=== PATIENT | male | born 1980 | race Caucasian/White ===

== ENCOUNTER → 2022-02-27 12:41 | Outpatient (CLI) | payer OTHER ==
[~2022-02-27 12:41] MED LIST: BUDEO.25 IH; KETO10TA2 PO; LORATADINE10 MG PO; ORPH100T PO; PREVACID30 MG PO; PROVENTIL0.5 ML/2.5 IH; ZANTAC300 MG PO
== END | disposition home or self-care (01) ==
LOC: LAB 12:41
PROVIDERS: ATTEND Obstetrics & Gynecology
DX: Z20.828 Contact with and (suspected) exposure to other viral communicable diseases (principal)

== ENCOUNTER 2023-08-25 12:56 | Emergency (ER) | payer OTHER ==
[~2023-08-25] VITALS: Ht 188 cm; Wt 91.2 kg
[2023-08-25] MEDS ORDERED: NORFLEX100MG PO (17:31)
[2023-08-25] MEDS ORDERED: DICLOFENAC SODI75 MG PO (17:31)
== END 2023-08-25 18:17 | disposition home or self-care (01) ==
LOC: ER 12:57
DX: M54.50 Low back pain, unspecified (principal); Z88.8 Allergy status to other drugs, medicaments and biological substances

== ENCOUNTER 2024-04-25 09:59 | Emergency (ER) | payer OTHER ==
[~2024-04-25] VITALS: Ht 188 cm; Wt 92.5 kg
[~2024-04-25 09:59] MED LIST changes: +ALBUTEROL2.5 MG/3 M IH; +COUGH & CHEST177 ML PO; +DICLOFENAC SODI75 MG PO; +NORFLEX100MG PO; +PROVENTIL HFA6.7 GM IH
[2024-04-25] MEDS ORDERED: BENZONATATE 100 MG CAPSULE PO ONE (10:45)
[2024-04-25] MEDS ORDERED: IPRATROPIUM/ALBUTEROL SULFATE 3 ML AMPUL.NEB IH ONE ×2 (10:45→11:43)
[2024-04-25] MEDS ORDERED: METHYLPREDNISOLONE SOD SUCC 40 MG VIAL IM ONE (10:45)
[2024-04-25] MEDS ORDERED: MONTELUKAST SODIUM 10 MG TABLET PO ONE (10:45)
[2024-04-25] MEDS ORDERED: LEVALBUTEROL HCL 0.63 MG/3 ML SOLUTION IH ONE ×2 (10:45→11:40)
[2024-04-25] MEDS ORDERED: METHYLPREDNISOLONE SOD SUCC 40 MG VIAL ONE (10:50)
[2024-04-25 11:23] LABS: HEMATOCRIT 44.4 % (39.0-48.0); HEMOGLOBIN 14.9 g/dL (13-16.00); MEAN CORPUSCULAR HEMOGLOBIN 26.9 pg (27.00-32.0); MEAN CORPUSCULAR HGB CONC 33.6 g/dl (32.0-36.0); PLATELET COUNT 386 K/uL (150-450); RED BLOOD COUNT 5.55 M/uL (4.00-6.00); RED CELL DISTRIBUTION WIDTH 13.9 % (11.5-14.5)
[2024-04-25 11:36] LABS: ABG PH 7.394 (7.35-7.45); ABG pCO2 44.2 mmHg (35-45); BASE EXCESS 1.1 mmol/l; BICARBONATE 26.4 mmol/l (23-25); SaO2 94.8 %; Tco2 27.8 mmol/l
[2024-04-25 17:36] LABS: allen test SATISFACTORY; o2 21 %; puncture site RADIAL RIGHT
== END 2024-04-25 13:53 | disposition home or self-care (01) ==
LOC: ER 10:00
PROVIDERS: General Practice
DX: J45.901 Unspecified asthma with (acute) exacerbation (principal); Z91.013 Allergy to seafood; Z88.8 Allergy status to other drugs, medicaments and biological substances; I25.10 Atherosclerotic heart disease of native coronary artery without angina pectoris; Z20.822 Contact with and (suspected) exposure to COVID-19
CPT/HCPCS: 36415; 71045; 82803; 94640; 99284; J3490

== ENCOUNTER 2024-08-09 10:26 | Emergency (ER) | payer OTHER ==
[~2024-08-09] VITALS: Ht 188 cm; Wt 95.3 kg
[2024-08-09] MEDS ORDERED: IPRATROPIUM BROMIDE 0.5 MG/2.5 ML AMPUL.NEB IH ONE (12:15)
[2024-08-09] MEDS ORDERED: ALBUTEROL SULFATE 3 ML/2.5 MG AMPUL.NEB IH ONE (12:15)
[2024-08-09] MEDS ORDERED: METHYLPREDNISOLONE SOD SUCC 125 MG VIAL IV ONE (12:15)
[2024-08-09 12:53] LABS: HEMATOCRIT 48.1 % (39.0-48.0); HEMOGLOBIN 15.7 g/dL (13-16.00); MEAN CELL VOLUME 82.4 fL (80.0-100.00); MEAN CORPUSCULAR HEMOGLOBIN 26.9 pg (27.00-32.0); MEAN CORPUSCULAR HGB CONC 32.6 g/dl (32.0-36.0); PLATELET COUNT 303 K/uL (150-450); RED BLOOD COUNT 5.84 M/uL (4.00-6.00); RED CELL DISTRIBUTION WIDTH 13.5 % (11.5-14.5)
[2024-08-09] MEDS ORDERED: MONTELUKAST SOD10 MG PO (13:40)
[2024-08-09] MEDS ORDERED: ZITHROMAX200 MG PO (13:41)
== END 2024-08-09 14:13 | disposition home or self-care (01) ==
LOC: ER 10:28
PROVIDERS: General Practice
DX: R53.81 Other malaise (principal); J06.9 Acute upper respiratory infection, unspecified; Z20.822 Contact with and (suspected) exposure to COVID-19; Z88.6 Allergy status to analgesic agent

== ENCOUNTER 2025-02-08 16:00 | Inpatient (IN) | payer OTHER ==
[~2025-02-08] VITALS: Ht 188 cm; Wt 99.8 kg
[~2025-02-08 16:00] MED LIST changes: +MONTELUKAST SOD10 MG PO; +ZITHROMAX200 MG PO
[2025-02-08] MEDS ORDERED: ONDANSETRON HCL 2 MG/ML VIAL IV STA (17:12)
[2025-02-08] MEDS ORDERED: 0.9 % SODIUM CHLORIDE 1,000 ML IV STA (17:13)
[2025-02-08] MEDS ORDERED: DILTIAZEM HCL 25 MG/5 ML VIAL IV STA (17:19)
[2025-02-08] MEDS ORDERED: DILTIAZEM HCL 25 MG/5 ML VIAL IV ONE (17:30)
[2025-02-08] MEDS ORDERED: ONDANSETRON HCL 2 MG/ML VIAL ONE (17:30)
[2025-02-08 18:02] LABS: BASO % 0.3 % (0.1-1.2); EOS # 0.19 (0.04-0.54); EOS % 1.9 % (0.7-7.0); HEMATOCRIT 48.8 % (40.1-51.0); LYMPH # 0.82 (1.18-3.74); LYMPH % 8.2 % (19.3-53.1); MEAN CORPUSCULAR HEMOGLOBIN 26.4 pg (25.6-32.2); MONO # 0.83 (0.24-0.82); MONO % 8.3 % (4.7-12.5); NEUT # 8.05 (1.56-6.13); NEUT % 80.9 % (34.0-71.1); PLATELET COUNT 339 K/uL (163-369); RED BLOOD COUNT 6.05 M/uL (4.63-6.08); RED CELL DISTRIBUTION WIDTH 12.6 % (11.6-14.4)
[2025-02-08 18:14] LABS: INR 1.02; PARTIAL THROMBOPLASTIN TIME 30.8 SECONDS (22.0-34.0); PROTHROMBIN TIME 11.1 SECONDS (9.0-11.5)
[2025-02-08 18:30] LABS: ALBUMIN 4.3 gm/dL (3.4-5.0); BILIRUBIN TOTAL 0.62 mg/dL (0.3-1.2); CREATININE SERUM 1.04 mg/dL (0.70-1.30); GFR 78.32; GLOBULINA 3.9 G/DL (2.4-3.5); POTASSIUM 4.14 mEq/L (3.5-5.1); TOTAL PROTEIN 8.2 gm/dL (6.4-8.2)
[2025-02-08] MEDS ORDERED: 0.9 % SODIUM CHLORIDE 1,000 ML IV SCH (19:45)
[2025-02-08] MEDS ORDERED: ENOXAPARIN SODIUM 40 MG/0.4 ML SYRINGE SUBCUTANEO SCH (19:47)
[2025-02-08] MEDS ORDERED: IPRATROPIUM BROMIDE 0.5 MG/2.5 ML AMPUL.NEB IH SCH (19:48)
[2025-02-08] MEDS ORDERED: ACETAMINOPHEN 500 MG GEL..CAP PO PRN (20:00)
[2025-02-08] MEDS ORDERED: PANTOPRAZOLE SODIUM 40 MG/VIAL VIAL IV ONE (20:00)
[2025-02-08] MEDS ORDERED: ONDANSETRON HCL 4 MG in 0.9 % SODIUM CHLORIDE 50 ML IV PRN (20:00)
[2025-02-08 20:37] VITALS: BP 129/73; O2SAT 96
[2025-02-09] VITALS: BP 106/57; O2SAT 99
[2025-02-09 05:30] VITALS: BP 138/82; O2SAT 100
[2025-02-09 07:12] LABS: CHOL HDL RATIO 4.2 (0-5.0); TSH 0.379 uIU/mL (0.358-3.74)
[2025-02-09] MEDS ORDERED: BUDESONIDE 0.5 MG/2 ML AMPUL.NEB IH SCH (09:00)
[2025-02-09] MEDS ORDERED: DILTIAZEM HCL 30 MG TABLET PO SCH (09:00)
[2025-02-09] MEDS ORDERED: PANTOPRAZOLE SODIUM 40 MG TABLET.DR PO SCH (09:00)
[2025-02-09] MEDS ORDERED: DILTIAZEM HCL 120 MG CAP.SR.24H PO SCH (09:00)
[2025-02-09 09:18] LABS: CALCIUM 8.6 mg/dL (8.5-10.1); CREATININE SERUM 1.1 mg/dL (0.70-1.30); GFR 73.41; POTASSIUM 3.79 mEq/L (3.5-5.1)
[2025-02-09 11:53] LABS: ABG PH 7.387 (7.35-7.45); ABG PO2 82.8 mmHg (80-100); BASE EXCESS -2.3 mmol/l; BICARBONATE 22.3 mmol/l (23-25); SaO2 95.8 %; Tco2 23.5 mmol/l
[2025-02-09 12:00] VITALS: BP 117/71; O2SAT 98
[2025-02-09 15:23] VITALS: BP 95/60; O2SAT 100
[2025-02-09 15:58] LABS: allen test SATISFACTORY; o2 21 %; puncture site RADIAL RIGHT
[2025-02-09 15:59] LABS: mode ROOM AIR
[2025-02-09] MEDS ORDERED: MONTELUKAST SODIUM 10 MG TABLET PO SCH (17:00)
[2025-02-09] MEDS ORDERED: MONTELUKAST SODIUM 10 MG TABLET PO ONE (17:12)
[2025-02-09] MEDS ORDERED: DILTIAZEM HCL 30 MG TABLET PO ONE (17:12)
[2025-02-09 17:31] VITALS: BP 138/80; BP 150/80; O2SAT 95
[2025-02-09 21:20] VITALS: O2SAT 97
[2025-02-10 00:37] VITALS: BP 103/68; O2SAT 97
[2025-02-10 01:36] VITALS: O2SAT 98
[2025-02-10 06:05] VITALS: O2SAT 97
[2025-02-10 06:33] LABS: BASO % 0.3 % (0.1-1.2); EOS # 0.23 (0.04-0.54); EOS % 3.1 % (0.7-7.0); HEMATOCRIT 44.7 % (40.1-51.0); HEMOGLOBIN 14.7 g/dL (13.7-17.5); LYMPH # 1.15 (1.18-3.74); LYMPH % 15.5 % (19.3-53.1); MEAN CORPUSCULAR HEMOGLOBIN 26.8 pg (25.6-32.2); MONO # 0.98 (0.24-0.82); NEUT # 5.01 (1.56-6.13); NEUT % 67.5 % (34.0-71.1); PLATELET COUNT 258 K/uL (163-369); RED BLOOD COUNT 5.48 M/uL (4.63-6.08); RED CELL DISTRIBUTION WIDTH 12.7 % (11.6-14.4)
[2025-02-10 06:43] LABS: MONO % 13.2 % (4.7-12.5)
[2025-02-10 07:15] LABS: CALCIUM 8.2 mg/dL (8.5-10.1); CREATININE SERUM 0.95 mg/dL (0.70-1.30); GFR 86.94; MAGNESIUM 2.1 mg/dL (1.8-2.4); POTASSIUM 3.92 mEq/L (3.5-5.1)
[2025-02-10] MEDS ORDERED: CARDIZEM30 MG PO (07:22)
[2025-02-10 09:47] VITALS: BP 111/71
== END 2025-02-10 10:18 | disposition home or self-care (01) | DRG 310 ==
LOC: ER 16:04 → MEDI 20:14 → SEC-K 20:14 → MEDJ 02-09 17:20
PROVIDERS: General Practice; ADMIT Internal Medicine; ATTEND Internal Medicine
PROC: B246ZZZ Ultrasonography of Right and Left Heart (ICD-10-PCS; 2025-02-08)
PROC: 4A12X4Z Monitoring of Cardiac Electrical Activity, External Approach (ICD-10-PCS; principal; 2025-02-09)
PROC: BW40ZZZ Ultrasonography of Abdomen (ICD-10-PCS; 2025-02-09)
PROC: 3E0F7GC Introduction of Other Therapeutic Substance into Respiratory Tract, Via Natural or Artificial Opening (ICD-10-PCS; 2025-02-09)
DX: I47.10 Supraventricular tachycardia, unspecified (principal); J45.998 Other asthma; R00.2 Palpitations; A08.4 Viral intestinal infection, unspecified; A05.9 Bacterial foodborne intoxication, unspecified

== ENCOUNTER 2025-06-29 17:50 | Emergency (ER) | payer OTHER ==
[~2025-06-29] VITALS: Ht 182.9 cm; Wt 100.2 kg
[~2025-06-29 17:50] MED LIST changes: +CARDIZEM30 MG PO
[2025-06-29] MEDS ORDERED: DILTIAZEM HCL 125MG/25ML VIAL IV STA (18:32)
[2025-06-29] MEDS ORDERED: ONDANSETRON HCL 2 MG/ML VIAL IV STA (18:33)
[2025-06-29] MEDS ORDERED: FAMOTIDINE/PF 20 MG/2 ML VIAL IV STA (18:33)
[2025-06-29] MEDS ORDERED: 0.9 % SODIUM CHLORIDE 1,000 ML IV STA (18:34)
[2025-06-29] MEDS ORDERED: DILTIAZEM HCL 30 MG TABLET PO STA (19:14)
[2025-06-29 19:36] LABS: BASO % 0.5 % (0.1-1.2); EOS # 0.28 (0.04-0.54); EOS % 3.2 % (0.7-7.0); LYMPH # 1.92 (1.18-3.74); LYMPH % 21.9 % (19.3-53.1); MEAN PLATELET VOLUME 8.90 fl (9.4-12.4); MONO # 0.67 (0.24-0.82); MONO % 7.6 % (4.7-12.5); NEUT # 5.82 (1.56-6.13); NEUT % 66.5 % (34.0-71.1); RED CELL DISTRIBUTION WIDTH 12.5 % (11.6-14.4)
[2025-06-29 19:49] LABS: ALT/SGPT 59 U/L (12-78); AST/SGOT 23 U/L (15-37); BILIRUBIN TOTAL 0.26 mg/dL (0.3-1.2); BUN CREA RATIO 11 (7.0-25.0); CREATININE SERUM 1.24 mg/dL (0.70-1.30); GFR 63.63; GLOBULINA 4.2 G/DL (2.4-3.5); GLUCOSE FASTING 112 mg/dL (65-100); OSMOLALITY SERUM 281 MOSM/KG (275-295)
[2025-06-29 20:21] LABS: URINE APPEARANCE Clear; URINE BILIRRUBIN Negative (NEGATIVE); URINE BLOOD Negative; URINE COLOR Yellow; URINE GLUCOSE Negative (NEGATIVE); URINE KETONE Negative (NEGATIVE); URINE LEUKOCYTE Small; URINE NITRATE Negative; URINE PROTEIN Negative (NEGATIVE); URINE UROBILINOGEN 0.2 E.U./dl
[2025-06-29 21:07] LABS: URINE BACTERIA 19.1 uL (0.0-1933); URINE EPITHELIAL CELLS 2.6 uL (0.0-38.8); URINE WBC 106.7 uL (0.0-23.2)
[2025-06-29 21:23] LABS: URINE CAST 0.14 uL (0.0-1.40); URINE RBC 1.1 uL (0.0-20.8)
[2025-06-29] MEDS ORDERED: CLONAZEPAM 0.5 MG TABLET PO STA (21:35)
[2025-06-29] MEDS ORDERED: CEFTRIAXONE SODIUM 1,000 MG VIAL IV STA (21:38)
[2025-06-29] MEDS ORDERED: PEPCID AC20 MG PO (22:40)
[2025-06-29] MEDS ORDERED: DICY20TA PO (22:40)
[2025-06-29] MEDS ORDERED: LEXAPRO5 MG PO (22:40)
[2025-06-29] MEDS ORDERED: CIPRO500 MG PO (22:40)
== END 2025-06-29 22:54 | disposition home or self-care (01) ==
LOC: ER 17:51
PROVIDERS: Physician Assistant Medical
DX: R07.89 Other chest pain (principal); F41.9 Anxiety disorder, unspecified; N39.0 Urinary tract infection, site not specified; I10 Essential (primary) hypertension; Z88.8 Allergy status to other drugs, medicaments and biological substances